=== PATIENT | female | born 1985 | race Caucasian/White ===

== ENCOUNTER 2017-11-21 12:28 | Emergency (ER) | payer BC ==
[~2017-11-21] VITALS: Ht 162.6 cm; Wt 65.0 kg
[2017-11-21 12:32] VITALS: BP 120/60; PULSE 74; RESP 14; TEMP 98.3; O2SAT 100
--- NOTE | 2017-11-21 12:52 | PD ---
HPI Chief Complaint: Related Problem Time Seen by Provider: 12:51 Travel History International Travel<30 days: No Contact w/Intl Traveler<30days: No Traveled to known affect area: No History of Present Illness HPI 32-year-old female came to the emergency room with history of vaginal bleeding. Patient says that she is and her last menstrual period was October 04. She started bleeding just 1 hour ago. Patient has history of miscarriage and ectopic in the past. This is A2. She is having some lower abdominal cramps. Patient thinks she is having another miscarriage. She describes the bleeding as her menstrual cycle. Vital signs are stable. Patient has not seen any OB yet and no ultrasound done for this . No aggravating or relieving factors identified for the pain. No radiation. [facility] Past Medical History Narrative Medical List of her past medical, surgical, social and family history is reviewed from the nursing note. ?: LMP: 6 weeks Social History Tobacco Use: Yes Allergies-Medications (Allergen,Severity, Reaction): Coded Allergies: ciprofloxacin (Verified Allergy, Severe, Hives, 11/21/17) Comments List of her allergies reviewed from the nursing note. Reported Meds & Prescriptions Reported Meds & Active Scripts Active Reported Plus Iron 29-1 mg ( Vit-Iron Carbonyl) 29 Mg Iron-1 Mg Tab 1 Tab PO DAILY Narrative Medication List of her home medications reviewed from the nursing note. Review of Systems Except as stated in HPI: all other systems reviewed are Neg Genitourinary: Positive: Pelvic Pain, Vaginal Bleeding Physical Exam Narrative GENERAL: Awake, alert, anxious, no obvious distress SKIN: Focused skin assessment warm/dry. HEAD: Atraumatic. Normocephalic. EYES: Pupils equal and round. No scleral icterus. No injection or drainage. ENT: No nasal bleeding or discharge. Mucous membranes pink and moist. NECK: Trachea midline. No JVD. CARDIOVASCULAR: Regular rate and rhythm. No murmur appreciated. RESPIRATORY: No accessory muscle use. Clear to auscultation. Breath sounds equal bilaterally. GASTROINTESTINAL: Abdomen soft, non-tender, nondistended. Hepatic and splenic margins not palpable. MUSCULOSKELETAL: No obvious deformities. No clubbing. No cyanosis. No edema. NEUROLOGICAL: Awake and alert. No obvious cranial nerve deficits. Motor grossly within normal limits. Normal speech. PSYCHIATRIC: Appropriate mood and affect; insight and judgment normal. Data Data Last Documented VS Vital Signs Date Time Temp Pulse Resp B/P (MAP) Pulse Ox O2 Delivery O2 Flow Rate FiO2 11/21/17 16:29 11/21/17 16:14 78 99 Room Air 11/21/17 14:30 14 11/21/17 12:32 98.3 Orders Orders Beta Hcg (Quant/Titer) (11/21/17 12:56) Complete Blood Count With Diff (11/21/17 12:56) Basic Metabolic Panel (Bmp) (11/21/17 12:56) Ed Urine Pregnancytest Poc (11/21/17 12:56) Ed Poc Ultrasound (11/21/17 12:56) Type And Screen (11/21/17 12:56) Us Pelvis (Ques Pr/Ect)W Trans (11/21/17 ) Ed Discharge Order (11/21/17 16:10) Labs Laboratory Tests Test 11/21/17 13:25 White Blood Count 10.6 TH/MM3 Red Blood Count 4.45 MIL/MM3 Hemoglobin 11.7 GM/DL Hematocrit 35.7 % Mean Corpuscular Volume 80.2 FL Mean Corpuscular Hemoglobin 26.3 PG Mean Corpuscular Hemoglobin Concent 32.8 % Red Cell Distribution Width 16.1 % Platelet Count 388 TH/MM3 Mean Platelet Volume 8.0 FL Neutrophils (%) (Auto) 68.0 % Lymphocytes (%) (Auto) 22.4 % Monocytes (%) (Auto) 6.8 % Eosinophils (%) (Auto) 1.6 % Basophils (%) (Auto) 1.2 % Neutrophils # (Auto) 7.2 TH/MM3 Lymphocytes # (Auto) 2.4 TH/MM3 Monocytes # (Auto) 0.7 TH/MM3 Eosinophils # (Auto) 0.2 TH/MM3 Basophils # (Auto) 0.1 TH/MM3 CBC Comment DIFF FINAL Differential Comment Blood Urea Nitrogen 9 MG/DL Creatinine 0.47 MG/DL Random Glucose 90 MG/DL Calcium Level 8.3 MG/DL Sodium Level 140 MEQ/L Potassium Level 4.3 MEQ/L Chloride Level 108 MEQ/L Carbon Dioxide Level 24.2 MEQ/L Anion Gap 8 MEQ/L Estimat Glomerular Filtration Rate 152 ML/MIN Human Chorionic Gonadotropin, Quant 1131 MIU/ML MDM Medical Decision Making Medical Screen Exam Complete: Yes Emergency Medical Condition: Yes Medical Record Reviewed: Yes Interpretation(s) Last Impressions Pelvis Ultrasound 11/21/17 0000 Signed Impressions: CONCLUSION: 1. Thickened endometrium with no intrauterine gestational sac. This study does not exclude ectopic . 2. Hypoechoic cystic structure in the left ovary which could represent a corpu s luteal cyst. 3. Small amount of free fluid in the cul-de-sac. Differential Diagnosis Tendon , ectopic , vaginal bleeding in early Narrative Course 2:30 PM blood test results are back and beta-hCG Quant is elevated as expected but not correlating with 6 weeks. My bedside ultrasound did not reveal any intrauterine . Please refer to my procedure note. Awaiting for a transvaginal ultrasound. 4:09 PM the ultrasound report is inconclusive but cannot rule out ectopic . Patient will be discharged home and asked to get a repeat beta-hCG in 48 hours. Patient says that she is not from this area and would like to go to a local emergency room for the repeat test which is fine with me. She will be discharged home with the blood test report and the ultrasound report. Her blood type is A+. Procedures Procedure Narrative Emergency Department Pelvic ultrasound was performed with patient consent. The curvilinear probe was used in the transverse and sagittal views within the suprapubic region revealing negative intrauterine . EKG Prior to Arrival: No Diagnosis Primary Impression: Threatened versus ectopic Additional Impression: Vaginal bleeding Additional Instructions: Please return to the emergency room in 48 hours to get a repeat blood test for beta-hCG done. You can also follow-up with your [facility] for that as long as the test is repeated in 48 hours. You would need to return sooner if symptoms worsen. No tampons, vaginal douching or vaginal intercourse or anything in the vagina until he been seen by [facility]. Med/Other Pt SpecificInfo: No Change to Meds Disposition: 01 DISCHARGE HOME Condition: Stable Anai Mejias MD Nov 21, 2017 12:52
[2017-11-21] MEDS ORDERED: PREN29TA PO (12:57)
[2017-11-21 13:33] LABS: AUTOMATED NEUTROPHIL # 7.2 TH/MM3 (1.8-7.7); BASOPHIL # 0.1 TH/MM3 (0-0.2); BASOPHIL % 1.2 % (0.0-2.0); EOSINOPHIL # 0.2 TH/MM3 (0-0.4); EOSINOPHIL % 1.6 % (0.0-4.0); HEMATOCRIT 35.7 % (35.0-46.0); HEMOGLOBIN 11.7 GM/DL (11.6-15.3); LYMPH % 22.4 % (9.0-44.0); LYMPHOCYTE # 2.4 TH/MM3 (1.0-4.8); MEAN CELL VOLUME 80.2 FL (80.0-100.0); MEAN CORPUSCULAR HEMOGLOBIN 26.3 PG (27.0-34.0); MEAN CORPUSCULAR HGB CONC 32.8 % (32.0-36.0); MONO % 6.8 % (0.0-8.0); MONOCYTE # 0.7 TH/MM3 (0-0.9); PLATELET COUNT 388 TH/MM3 (150-450); RED BLOOD COUNT 4.45 MIL/MM3 (4.00-5.30); RED CELL DISTRIBUTION WIDTH 16.1 % (11.6-17.2); WHITE BLOOD COUNT 10.6 TH/MM3 (4.0-11.0)
[2017-11-21 13:44] LABS: BICARBONATE 24.2 MEQ/L (21.0-32.0); CALCIUM 8.3 MG/DL (8.5-10.1)
[2017-11-21 13:48] LABS: CREATININE 0.47 MG/DL (0.50-1.00)
[2017-11-21 14:30] VITALS: BP 116/62; PULSE 72; RESP 14; O2SAT 100
--- NOTE | 2017-11-21 15:51 | RADRPT ---
EXAM DATE: 11/21/2017 3:41 PM EDT AGE/SEX: 32 years / Female INDICATIONS: Vaginal bleeding. Beta-hCG level of 1131. CLINICAL DATA: This is the patient's initial encounter. Patient reports that signs and symptoms have been present for 1 day and indicates a pain score of 4/10. MEDICAL/SURGICAL HISTORY: . Ectopic . Ovarian cysts. . section. COMPARISON: No prior [place] exams available for comparison. No external comparison. MEASUREMENTS: Uterus:__7.7 x 4.9 x 4.4 cm Endometrial Stripe:__17 mm Right Ovary:__ 2.8 x 3.1 x 1.6 cm Left Ovary:__ 4.0 x 3.2 x 2.6 cm FINDINGS: Uterus: The endometrium is thickened measuring up to 1.7 cm with mild heterogeneity. There is no int rauterine gestational sac identified. Right Ovary: Unremarkable in appearance. Left Ovary: Normal in size and shape with hypoechoic cystic appearing structure measuring 11 x 10 mm in diameter with no color flow. Other: Small amount of free fluid. CONCLUSION: 1. Thickened endometrium with no intrauterine gestational sac. This study does not exclude ectopic p regnancy. 2. Hypoechoic cystic structure in the left ovary which could represent a corpus luteal cyst. 3. Small amount of free fluid in the cul-de-sac. Electronically signed by: Seun Hebert MD 11/21/2017 3:50 PM EDT
[2017-11-21 16:14] VITALS: BP 119/66; PULSE 78; O2SAT 99
== END 2017-11-21 16:40 | disposition home or self-care (01) ==
LOC: PHED 12:28
DX: O20.9 Hemorrhage in early pregnancy, unspecified (principal); Z3A.01 Less than 8 weeks gestation of pregnancy
CPT/HCPCS: 76700; 76817; 80048; 84702; 84703; 85025; 86850; 86900; 86901; 99284